=== PATIENT | female | born 1985 | race Caucasian/White ===

== ENCOUNTER 2021-06-10 12:32 | Outpatient (CLI) | payer MEDICAID, SELFPAY ==
[2021-06-10 13:03] VITALS: BMI 31.3
--- NOTE | 2021-06-10 13:07 | ECG_ITS ---
[facility] Test Date: 2021-06-10 Pat Name: Sylvie Hopkins Department: Room: Gender: Female Inspector Poising: : 1985 Requested By: Luke Pope Order Number: [id number] Morelia MD: BRIAN MAHAJAN Interpretive Statements NAME OF STUDY: TREADMILL STRESS TEST INDICATION: Palpatations, EXERCISE DATA: The patient was exercised by Nicola protocol. Baseline heart rate was 82 beats per minute. Baseline blood pressure was 128/84 millimeters of mercury. Target heart rate was 186 beats per minute. Maximum heart rate achieved was 175, which was 94 % of the target heart rate. Maximum blood pressure was 207/84 millimeters of mercury. Total exercise time was 10 minutes. Maximum METs achieved was 13.5, maximum VO2 was 47.3. The reason for ending the test was maximum effort achieved. The patient complained of shortness of during the stress test, which then resolved at the end of the test. ELECTROCARDIOGRAM: BASELINE: Showed sinus rhythm, incomplete right bundle branch block, no significant ST-T changes at the baseline noted. EXERCISE: At the peak exercise level, no significant ST-T changes suggestive of ischemia noted. RECOVERY: During the recovery period, heart rate dropped appropriately. No significant ST-T changes in the recovery suggestive of ischemia noted. CONCLUSION: 1. Exercise capacity good. 2. Heart rate response was appropriate. 3. Blood pressure response was appropriate. 4. Symptoms not suggestive of ischemia. 5. Electrocardiogram portion of the stress test was not suggestive of ischemia. 6. Nuclear scan will be documented separately. Electronically Signed On 06-11-2021 21:02:19 CDT by BRIAN MAHAJAN [id number]
[2021-06-10 13:51] VITALS: BP 133/72; PULSE 112
== END 2021-06-10 12:33 | disposition home or self-care (01) ==
LOC: CDL 12:37
PROVIDERS: PCP Family Medicine; Visit Provider Family Medicine
DX: R00.2 Palpitations (principal)
CPT/HCPCS: 93017